=== PATIENT | female | born 1965 | race Caucasian/White ===

== ENCOUNTER 2017-10-10 14:14 | Outpatient (CLI) ==
--- NOTE | 2017-10-10 14:47 | US ---
EXAM: Ultrasound venous Doppler lower extermity HISTORY: Left pain left lower extremity COMPARISON: None TECHNIQUE: Venous duplex ultrasound of the left lower extremity was performed using color, morgan-scal e, and Doppler flow imaging. FINDINGS: There is normal color flow and compression of the left common femoral, greater saphenous, profunda femoral, femoral, popliteal, peroneal, posterior tibial, and anterior tibial veins without e vidence of intraluminal thrombus. No reflux is identified. IMPRESSION: No left lower extremity deep venous thrombosis.
== END 2017-10-10 14:15 | disposition home or self-care (01) ==
LOC: RAD 14:14
PROVIDERS: ATTEND Family Medicine
DX: R22.42 Localized swelling, mass and lump, left lower limb (principal); M79.605 Pain in left leg